=== PATIENT | female | born 1945 | race Caucasian/White ===

== ENCOUNTER 2019-09-22 09:59 | Inpatient (IN) ==
[2019-09-22] MEDS ORDERED: SODIUM CHLORIDE 0.9% 2,000 ML IV STA (10:51)
[2019-09-22 11:45] LABS: Basophils % 0.2 % (0.0-0.8); Eosinophils # 0.1 10*3/uL (0.0-0.87); Eosinophils % 0.6 % (0.00-10.9); Hemoglobin 12.9 GM/DL (12.0-16.0); Immature Granulocytes % 0.5 %; Immature Granulocytes Absolute 0.05 #; Lymphocytes # 0.7 10*3/uL (1.4-4.0); Lymphocytes % 7.4 % (21.3-54.2); Mean Corpuscular HGB Conc 32.3 GM/DL (32-36); Mean Corpuscular Volume 84.7 FL (87-102); Mean Platelet Volume 10.5 FL (9.6-12.0); Monocytes % 6.1 % (1.7-12.7); Neutrophils % 85.2 % (38.7-73.9); Platelet Count 293 T/CUMM (130-400); Red Blood Count 4.72 MC/CUMM (3.8-5.5); Red Cell Distribution Width 13.1 % (9.3-17.3); White Blood Count 9.6 T/CUMM (4-12)
[2019-09-22 11:57] LABS: INR 1.1; PT Patient Result 11.4 SECS (9.8-11.9)
[2019-09-22 12:28] LABS: Albumin 2.5 G/DL (3.4-5.0); Bilirubin,Total 0.5 MG/DL (0.2-1.0); Calcium 8.6 MG/DL (8.5-10.1); Ferritin 489.8 ng/ml (8-252); Osmolality,Calculated 279.5 MOS/KG (273-304); Total Protein 6.9 G/DL (6.4-8.3)
[2019-09-22] MEDS ORDERED: DEXTROSE 50% 25 GM/50 ML VIAL IV PRN (15:20)
[2019-09-22] MEDS ORDERED: GLUCAGON 1 MG VIAL IM PRN (15:20)
[2019-09-22 16:40] LABS: Apearance,Urine Slightly Hazy (Clear); Bacteria,Urine Occasional /HPF (Few); Bilirubin,Urine Negative (Negative); Blood, Urine Negative (Negative); Glucose,Urine (UA) Negative (Negative); Hyaline Casts,Urine 1 /LPF (0-3); Ketones,Urine 5 mg/dL (Negative); Mucus,Urine Occasional /LPF (Occasional); Nitrite,Urine Negative (Negative); Protein,Urine Negative; RBC,Urine 3 /HPF (0-4); Squamous Epithelial Cell,Urine Occasional /HPF (0-10); Urine Color Yellow (Yellow); Urine Specific Gravity 1.018 (1.001-1.035); Urine Urobilinogen < 2.0 EU/DL (0.2-1.0); WBC,Urine 3 /HPF (0-6)
[2019-09-22] MEDS: SODIUM CHLORIDE 0.9% 1,000 ML IV SCH (17:33)
[2019-09-22] MEDS: hydroCHLOROthiazide 25 MG TABLET PO SCH (20:39)
[2019-09-22] MEDS: LOSARTAN 50 MG TABLET PO SCH (20:39)
[2019-09-22] MEDS: POTASSIUM CHLORIDE 20 MEQ TABLET PO PRN (22:58)
[2019-09-23] MEDS: POTASSIUM CHLORIDE 20 MEQ TABLET PO PRN ×6 (01:46→22:12)
[2019-09-23] MEDS: SODIUM CHLORIDE 0.9% 1,000 ML IV SCH ×2 (03:51→15:11)
[2019-09-23 06:42] LABS: Basophils % 0.3 % (0.0-0.8); Eosinophils # 0.1 10*3/uL (0.0-0.87); Eosinophils % 1.9 % (0.00-10.9); Hematocrit 36.1 VOL% (35.7-47.0); Hemoglobin 11.9 GM/DL (12.0-16.0); Immature Granulocytes % 0.4 %; Immature Granulocytes Absolute 0.03 #; Lymphocytes # 0.7 10*3/uL (1.4-4.0); Lymphocytes % 9.3 % (21.3-54.2); Mean Corpuscular Volume 83.4 FL (87-102); Monocytes % 7.4 % (1.7-12.7); Neutrophils % 80.7 % (38.7-73.9); Platelet Count 261 T/CUMM (130-400); Red Blood Count 4.33 MC/CUMM (3.8-5.5); Red Cell Distribution Width 13.1 % (9.3-17.3)
[2019-09-23 06:58] LABS: Ferritin 409.2 ng/ml (8-252)
[2019-09-23 07:10] LABS: Calcium 8.4 MG/DL (8.5-10.1); Osmolality,Calculated 281.1 MOS/KG (273-304); Risk Ratio 2.58; Thyroid Stimulating Hormone 0.271 uIU/ml (0.358-3.74)
[2019-09-23] MEDS ORDERED: POTASSIUM CHLORIDE 20 MEQ TABLET PO SCH (09:00)
[2019-09-23] MEDS: ATORVASTATIN 40 MG TABLET PO SCH (09:05)
[2019-09-23] MEDS: ESTRADIOL 1 MG TABLET PO SCH (09:05)
[2019-09-23] MEDS: METOPROLOL SUCCINATE XL 50 MG TABLET PO SCH (09:05)
[2019-09-23] MEDS: PANTOPRAZOLE 40 MG TABLET PO SCH (09:05)
[2019-09-23] MEDS ORDERED: AZITHROMYCIN INJ 500 MG in SODIUM CHLORIDE 0.9% 250 ML IV SCH (11:00)
[2019-09-23] MEDS: cefTRIAXone 1,000 MG in SYRINGE 1 EACH IV SCH (11:48)
[2019-09-23] MEDS: LOSARTAN 50 MG TABLET PO SCH (21:01)
[2019-09-23] MEDS: hydroCHLOROthiazide 25 MG TABLET PO SCH (21:01)
[2019-09-23] MEDS ORDERED: MELATONIN 3 MG TABLET PO ONE (22:24)
[2019-09-24] MEDS: POTASSIUM CHLORIDE 20 MEQ TABLET PO PRN ×3 (00:41→15:13)
[2019-09-24] MEDS: SODIUM CHLORIDE 0.9% 1,000 ML IV SCH ×3 (00:49→20:26)
[2019-09-24 06:16] LABS: Basophils % 0.3 % (0.0-0.8); Eosinophils # 0.2 10*3/uL (0.0-0.87); Eosinophils % 2.5 % (0.00-10.9); Hemoglobin 10.9 GM/DL (12.0-16.0); Immature Granulocytes % 0.3 %; Immature Granulocytes Absolute 0.02 #; Lymphocytes % 13.1 % (21.3-54.2); Mean Corpuscular Volume 83.3 FL (87-102); Mean Platelet Volume 10.7 FL (9.6-12.0); Monocytes % 9.1 % (1.7-12.7); Neutrophils % 74.7 % (38.7-73.9); Platelet Count 276 T/CUMM (130-400); Red Blood Count 3.96 MC/CUMM (3.8-5.5); Red Cell Distribution Width 12.9 % (9.3-17.3); White Blood Count 7.3 T/CUMM (4-12)
[2019-09-24 06:25] LABS: Calcium 8.6 MG/DL (8.5-10.1); Osmolality,Calculated 274.5 MOS/KG (273-304)
[2019-09-24 06:32] LABS: Ferritin 375.8 ng/ml (8-252)
[2019-09-24] MEDS: ENOXAPARIN 40 MG/0.4 ML SYRINGE SUBCUT SCH (10:00)
[2019-09-24] MEDS: cefTRIAXone 1,000 MG in SYRINGE 1 EACH IV SCH (10:00)
[2019-09-24] MEDS: ESTRADIOL 1 MG TABLET PO SCH (10:01)
[2019-09-24] MEDS: ATORVASTATIN 40 MG TABLET PO SCH (10:01)
[2019-09-24] MEDS: METOPROLOL SUCCINATE XL 50 MG TABLET PO SCH (10:01)
[2019-09-24] MEDS: AZITHROMYCIN 250 MG TABLET PO SCH (10:01)
[2019-09-24] MEDS: PANTOPRAZOLE 40 MG TABLET PO SCH (10:01)
[2019-09-24] MEDS: LOSARTAN 50 MG TABLET PO SCH (20:25)
[2019-09-24] MEDS: hydroCHLOROthiazide 25 MG TABLET PO SCH (20:25)
[2019-09-24] MEDS ORDERED: MELATONIN 3 MG TABLET PO ONE (21:00)
[2019-09-25 04:39] LABS: Basophils % 0.4 % (0.0-0.8); Eosinophils # 0.2 10*3/uL (0.0-0.87); Eosinophils % 2.4 % (0.00-10.9); Hematocrit 32.6 VOL% (35.7-47.0); Hemoglobin 10.8 GM/DL (12.0-16.0); Immature Granulocytes % 0.4 %; Immature Granulocytes Absolute 0.03 #; Lymphocytes % 14.4 % (21.3-54.2); Mean Corpuscular HGB Conc 33.1 GM/DL (32-36); Mean Corpuscular Volume 82.1 FL (87-102); Mean Platelet Volume 10.4 FL (9.6-12.0); Monocytes % 8.9 % (1.7-12.7); Neutrophils % 73.5 % (38.7-73.9); Platelet Count 308 T/CUMM (130-400); Red Blood Count 3.97 MC/CUMM (3.8-5.5); Red Cell Distribution Width 12.8 % (9.3-17.3); White Blood Count 7.1 T/CUMM (4-12)
[2019-09-25 04:59] LABS: Calcium 8.7 MG/DL (8.5-10.1); Osmolality,Calculated 269.8 MOS/KG (273-304)
[2019-09-25 05:01] LABS: Ferritin 386.9 ng/ml (8-252)
[2019-09-25] MEDS: SODIUM CHLORIDE 0.9% 1,000 ML IV SCH ×2 (06:30→20:02)
[2019-09-25] MEDS: ESTRADIOL 1 MG TABLET PO SCH (08:57)
[2019-09-25] MEDS: AZITHROMYCIN 250 MG TABLET PO SCH (08:57)
[2019-09-25] MEDS: cefTRIAXone 1,000 MG in SYRINGE 1 EACH IV SCH (08:57)
[2019-09-25] MEDS: ENOXAPARIN 40 MG/0.4 ML SYRINGE SUBCUT SCH (08:57)
[2019-09-25] MEDS: METOPROLOL SUCCINATE XL 50 MG TABLET PO SCH (08:58)
[2019-09-25] MEDS: POTASSIUM CHLORIDE 20 MEQ TABLET PO PRN ×3 (08:58→18:09)
[2019-09-25] MEDS: PANTOPRAZOLE 40 MG TABLET PO SCH (08:58)
[2019-09-25] MEDS: ATORVASTATIN 40 MG TABLET PO SCH (08:58)
[2019-09-25] MEDS ORDERED: ONDANSETRON 4 MG/2 ML VIAL IV PRN (10:18)
[2019-09-25] MEDS: NYSTATIN 500,000 UNIT/5 ML UDCUP SWISH/SWAL SCH ×3 (11:27→20:01)
[2019-09-25] MEDS: hydroCHLOROthiazide 25 MG TABLET PO SCH (20:01)
[2019-09-25] MEDS: LOSARTAN 50 MG TABLET PO SCH (20:01)
[2019-09-25] MEDS: MELATONIN 3 MG TABLET PO PRN (20:56)
[2019-09-26 03:24] LABS: Calcium 8.8 MG/DL (8.5-10.1); Osmolality,Calculated 273.5 MOS/KG (273-304)
[2019-09-26] MEDS: ACETAMINOPHEN 325 MG TABLET PO PRN ×3 (03:36→20:19)
[2019-09-26] MEDS: SODIUM CHLORIDE 0.9% 1,000 ML IV SCH ×3 (04:44→20:38)
[2019-09-26] MEDS: NYSTATIN 500,000 UNIT/5 ML UDCUP SWISH/SWAL SCH ×4 (08:06→20:17)
[2019-09-26] MEDS: POTASSIUM CHLORIDE 20 MEQ TABLET PO PRN ×3 (08:07→22:20)
[2019-09-26] MEDS: ESTRADIOL 1 MG TABLET PO SCH (08:07)
[2019-09-26] MEDS: PANTOPRAZOLE 40 MG TABLET PO SCH (08:07)
[2019-09-26] MEDS: ATORVASTATIN 40 MG TABLET PO SCH (08:07)
[2019-09-26] MEDS: ENOXAPARIN 40 MG/0.4 ML SYRINGE SUBCUT SCH (08:08)
[2019-09-26] MEDS: METOPROLOL SUCCINATE XL 50 MG TABLET PO SCH (08:08)
[2019-09-26] MEDS ORDERED: POTASSIUM CHLORIDE 20 MEQ TABLET PO ONE (11:33)
[2019-09-26] MEDS: hydroCHLOROthiazide 25 MG TABLET PO SCH (20:18)
[2019-09-26] MEDS: DIPHENOXYLATE/ATROPINE 2.5-0.025 MG TABLET PO PRN (20:18)
[2019-09-26] MEDS: LOSARTAN 50 MG TABLET PO SCH (20:18)
[2019-09-26] MEDS: MELATONIN 3 MG TABLET PO PRN (20:18)
[2019-09-27] MEDS: POTASSIUM CHLORIDE 20 MEQ TABLET PO PRN (00:05)
[2019-09-27 05:40] LABS: Calcium 9.1 MG/DL (8.5-10.1); Osmolality,Calculated 276.3 MOS/KG (273-304)
[2019-09-27] MEDS: SODIUM CHLORIDE 0.9% 1,000 ML IV SCH ×2 (06:05→10:37)
[2019-09-27] MEDS: NYSTATIN 500,000 UNIT/5 ML UDCUP SWISH/SWAL SCH ×4 (08:09→20:16)
[2019-09-27] MEDS: ESTRADIOL 1 MG TABLET PO SCH (08:09)
[2019-09-27] MEDS: ATORVASTATIN 40 MG TABLET PO SCH (08:09)
[2019-09-27] MEDS: PANTOPRAZOLE 40 MG TABLET PO SCH (08:10)
[2019-09-27] MEDS: METOPROLOL SUCCINATE XL 50 MG TABLET PO SCH (08:10)
[2019-09-27] MEDS: ENOXAPARIN 40 MG/0.4 ML SYRINGE SUBCUT SCH (08:10)
[2019-09-27] MEDS ORDERED: FUROSEMIDE 40 MG/4 ML VIAL IV ONE (08:46)
[2019-09-27] MEDS: ACETAMINOPHEN 325 MG TABLET PO PRN ×2 (15:19→20:16)
[2019-09-27] MEDS: hydroCHLOROthiazide 25 MG TABLET PO SCH (20:15)
[2019-09-27] MEDS: DIPHENOXYLATE/ATROPINE 2.5-0.025 MG TABLET PO PRN (20:15)
[2019-09-27] MEDS: MELATONIN 3 MG TABLET PO PRN (20:16)
[2019-09-27] MEDS: LOSARTAN 50 MG TABLET PO SCH (20:16)
[2019-09-28 07:46] LABS: Osmolality,Calculated 274.5 MOS/KG (273-304)
[2019-09-28] MEDS: POTASSIUM CHLORIDE 20 MEQ TABLET PO PRN ×3 (08:39→16:16)
[2019-09-28] MEDS: ESTRADIOL 1 MG TABLET PO SCH (08:39)
[2019-09-28] MEDS: METOPROLOL SUCCINATE XL 50 MG TABLET PO SCH (08:39)
[2019-09-28] MEDS: ENOXAPARIN 40 MG/0.4 ML SYRINGE SUBCUT SCH (08:39)
[2019-09-28] MEDS: NYSTATIN 500,000 UNIT/5 ML UDCUP SWISH/SWAL SCH ×4 (08:39→20:20)
[2019-09-28] MEDS: PANTOPRAZOLE 40 MG TABLET PO SCH (08:39)
[2019-09-28] MEDS: ATORVASTATIN 40 MG TABLET PO SCH (08:39)
[2019-09-28 09:24] LABS: Basophils % 0.6 % (0.0-0.8); Eosinophils # 0.2 10*3/uL (0.0-0.87); Eosinophils % 2.9 % (0.00-10.9); Hematocrit 35.1 VOL% (35.7-47.0); Hemoglobin 11.3 GM/DL (12.0-16.0); Immature Granulocytes % 0.6 %; Immature Granulocytes Absolute 0.04 #; Lymphocytes # 1.6 10*3/uL (1.4-4.0); Lymphocytes % 22.9 % (21.3-54.2); Mean Corpuscular HGB Conc 32.2 GM/DL (32-36); Mean Platelet Volume 10.9 FL (9.6-12.0); Monocytes % 8.9 % (1.7-12.7); Neutrophils % 64.1 % (38.7-73.9); Platelet Count 403 T/CUMM (130-400); Red Blood Count 4.13 MC/CUMM (3.8-5.5); White Blood Count 6.9 T/CUMM (4-12)
[2019-09-28] MEDS ORDERED: FUROSEMIDE 20 MG/2 ML VIAL IV ONE (12:00)
[2019-09-28] MEDS ORDERED: MONTELUKAST 10 MG TABLET PO ONE (14:03)
[2019-09-28] MEDS ORDERED: MAGNESIUM SULF RIDER 4 GM in PREMIX 1 EACH IV PRN (16:26)
[2019-09-28] MEDS ORDERED: MAGNESIUM SULF RIDER 2 GM in PREMIX 1 EACH IV PRN (16:26)
[2019-09-28] MEDS: LOSARTAN 50 MG TABLET PO SCH (20:20)
[2019-09-28] MEDS ORDERED: hydroCHLOROthiazide 12.5 MG CAPSULE PO SCH (21:00)
[2019-09-28] MEDS: MELATONIN 3 MG TABLET PO PRN (22:28)
[2019-09-28] MEDS: ACETAMINOPHEN 325 MG TABLET PO PRN (22:28)
[2019-09-29 06:48] LABS: Calcium 9.4 MG/DL (8.5-10.1); Osmolality,Calculated 273.7 MOS/KG (273-304)
[2019-09-29] MEDS: MONTELUKAST 10 MG TABLET PO SCH (08:10)
[2019-09-29] MEDS: ESTRADIOL 1 MG TABLET PO SCH (08:10)
[2019-09-29] MEDS: ATORVASTATIN 40 MG TABLET PO SCH (08:10)
[2019-09-29] MEDS: ENOXAPARIN 40 MG/0.4 ML SYRINGE SUBCUT SCH (08:10)
[2019-09-29] MEDS: METOPROLOL SUCCINATE XL 50 MG TABLET PO SCH (08:10)
[2019-09-29] MEDS: PANTOPRAZOLE 40 MG TABLET PO SCH (08:10)
[2019-09-29] MEDS: NYSTATIN 500,000 UNIT/5 ML UDCUP SWISH/SWAL SCH ×4 (08:10→20:30)
[2019-09-29] MEDS: LOSARTAN 50 MG TABLET PO SCH (20:30)
[2019-09-29] MEDS: hydroCHLOROthiazide 12.5 MG CAPSULE PO SCH (20:30)
[2019-09-30] MEDS: PANTOPRAZOLE 40 MG TABLET PO SCH (08:41)
[2019-09-30] MEDS: ESTRADIOL 1 MG TABLET PO SCH (08:41)
[2019-09-30] MEDS: MONTELUKAST 10 MG TABLET PO SCH (08:41)
[2019-09-30] MEDS: ENOXAPARIN 40 MG/0.4 ML SYRINGE SUBCUT SCH (08:41)
[2019-09-30] MEDS: NYSTATIN 500,000 UNIT/5 ML UDCUP SWISH/SWAL SCH ×4 (08:41→20:22)
[2019-09-30] MEDS: ATORVASTATIN 40 MG TABLET PO SCH (08:41)
[2019-09-30] MEDS: METOPROLOL SUCCINATE XL 50 MG TABLET PO SCH ×2 (08:41→08:46)
[2019-09-30] MEDS: LOSARTAN 50 MG TABLET PO SCH (20:20)
[2019-09-30] MEDS: hydroCHLOROthiazide 12.5 MG CAPSULE PO SCH (20:21)
[2019-09-30] MEDS: MELATONIN 3 MG TABLET PO PRN (23:50)
[2019-10-01 06:16] LABS: Calcium 9.5 MG/DL (8.5-10.1); Osmolality,Calculated 274.7 MOS/KG (273-304)
[2019-10-01] MEDS: ESTRADIOL 1 MG TABLET PO SCH (09:28)
[2019-10-01] MEDS: ATORVASTATIN 40 MG TABLET PO SCH (09:28)
[2019-10-01] MEDS: ENOXAPARIN 40 MG/0.4 ML SYRINGE SUBCUT SCH (09:28)
[2019-10-01] MEDS: NYSTATIN 500,000 UNIT/5 ML UDCUP SWISH/SWAL SCH (09:28)
[2019-10-01] MEDS: METOPROLOL SUCCINATE XL 50 MG TABLET PO SCH (09:29)
[2019-10-01] MEDS: PANTOPRAZOLE 40 MG TABLET PO SCH (09:29)
[2019-10-01] MEDS: MONTELUKAST 10 MG TABLET PO SCH (09:29)
[2019-10-01 11:30] VITALS: BP 120/57
== END 2019-10-01 11:45 | DRG 177 ==
LOC: EDBD → EDUNIT# → N.ED 09:59 → N.EDINP 15:20 → SUATTDRO 15:20 → N.2E 17:25
PROVIDERS: ADMIT Internal Medicine; ATTEND Internal Medicine

== ENCOUNTER 2021-04-27 08:57 | Inpatient (IN) ==
[2021-04-27 09:30] LABS: Basophils # 0.1 10*3/uL (0.0-0.2); Basophils % 0.5 % (0.0-0.8); Eosinophils # 0.1 10*3/uL (0.0-0.87); Eosinophils % 0.5 % (0.00-10.9); Hematocrit 37.4 VOL% (35.7-47.0); Hemoglobin 12.1 GM/DL (12.0-16.0); Immature Granulocytes % 0.5 %; Immature Granulocytes Absolute 0.07 #; Lymphocytes # 1.2 10*3/uL (1.4-4.0); Lymphocytes % 9.1 % (21.3-54.2); Mean Corpuscular HGB Conc 32.4 GM/DL (32-36); Mean Platelet Volume 12.2 FL (9.6-12.0); Monocytes % 5.6 % (1.7-12.7); Neutrophils % 83.8 % (38.7-73.9); Platelet Count 167 T/CUMM (130-400); Red Cell Distribution Width 13.5 % (9.3-17.3)
[2021-04-27 09:50] LABS: Eosinophils 1 % (0-10); Hypochromia 1+; Lymphocytes 8 % (20-55); Microcytosis 1+; Segmented Neutrophils 88 % (50-85); Total Cells Counted 100
[2021-04-27 09:51] LABS: Ovalocytes Slight; Platelet Estimate Adequate
[2021-04-27 10:02] LABS: Albumin 3.2 G/DL (3.4-5.0); Calcium 8.9 MG/DL (8.5-10.1); Osmolality,Calculated 279.3 MOS/KG (273-304); Total Protein 7.2 G/DL (6.4-8.2)
[2021-04-27] MEDS ORDERED: cefTRIAXone 1,000 MG in SODIUM CHLORIDE 0.9% 100 ML IV STA (11:12)
[2021-04-27] MEDS ORDERED: FUROSEMIDE 40 MG/4 ML VIAL IV STA (11:12)
[2021-04-27] MEDS ORDERED: AZITHROMYCIN INJ 500 MG in SODIUM CHLORIDE 0.9% 250 ML IV STA (11:13)
[2021-04-27] MEDS ORDERED: ONDANSETRON 4 MG/2 ML VIAL IV PRN (11:40)
[2021-04-27] MEDS ORDERED: ACETAMINOPHEN 325 MG TABLET PO PRN (11:40)
[2021-04-27] MEDS ORDERED: hydrALAZINE 20 MG/1 ML VIAL IV PRN (11:40)
[2021-04-27] MEDS ORDERED: GLUCAGON 1 MG VIAL IM PRN (11:40)
[2021-04-27] MEDS ORDERED: DOCUSATE SODIUM 100 MG CAPSULE PO PRN (11:40)
[2021-04-27] MEDS ORDERED: DEXTROSE 10% 25 GM/250 ML BAG IV PRN (11:40)
[2021-04-27] MEDS ORDERED: MECLIZINE 25 MG TABLET PO PRN (11:43)
[2021-04-27] MEDS ORDERED: ALBUTEROL 2.5 MG/3 ML NEB RESP TX PRN (12:35)
[2021-04-27] MEDS ORDERED: ZALEPLON 5 MG CAPSULE PO PRN (12:53)
[2021-04-27 12:59] LABS: Thyroid Stimulating Hormone 0.752 uIU/ml (0.358-3.74)
[2021-04-27] MEDS ORDERED: FUROSEMIDE 40 MG/4 ML VIAL IV ONE ×2 (14:00→16:00)
[2021-04-27] MEDS: INSULIN LISPRO 100 UNIT/ML SUBCUT SCH ×2 (18:20→21:12)
[2021-04-27] MEDS ORDERED: hydroCHLOROthiazide 25 MG TABLET PO SCH (21:00)
[2021-04-27] MEDS: LOSARTAN 50 MG TABLET PO SCH (21:11)
[2021-04-27] MEDS: APIXABAN 5 MG TABLET PO SCH (21:11)
[2021-04-28 05:12] LABS: Basophils # 0.1 10*3/uL (0.0-0.2); Basophils % 0.5 % (0.0-0.8); Eosinophils # 0.2 10*3/uL (0.0-0.87); Eosinophils % 1.7 % (0.00-10.9); Hemoglobin 12.3 GM/DL (12.0-16.0); Immature Granulocytes % 0.4 %; Immature Granulocytes Absolute 0.04 #; Lymphocytes # 2.2 10*3/uL (1.4-4.0); Lymphocytes % 20.6 % (21.3-54.2); Mean Corpuscular HGB Conc 31.5 GM/DL (32-36); Mean Corpuscular Volume 86.9 FL (87-102); Mean Platelet Volume 12.2 FL (9.6-12.0); Monocytes % 8.1 % (1.7-12.7); Neutrophils % 68.7 % (38.7-73.9); Platelet Count 168 T/CUMM (130-400); Red Blood Count 4.49 MC/CUMM (3.8-5.5); Red Cell Distribution Width 13.4 % (9.3-17.3); White Blood Count 10.6 T/CUMM (4-12)
[2021-04-28 05:33] LABS: Calcium 9.2 MG/DL (8.5-10.1); Osmolality,Calculated 272.7 MOS/KG (273-304); Potassium 2.8 MMOL/L (3.5-5.1); Risk Ratio 1.86; VLDL Cholesterol 17.6 MG/DL
[2021-04-28] MEDS: ESTRADIOL 1 MG TABLET PO SCH (09:38)
[2021-04-28] MEDS: CHOLECALCIFEROL 1,000 UNIT TABLET PO SCH (09:39)
[2021-04-28] MEDS: FAMOTIDINE 20 MG TABLET PO SCH (09:39)
[2021-04-28] MEDS: ATORVASTATIN 40 MG TABLET PO SCH (09:39)
[2021-04-28] MEDS: MONTELUKAST 10 MG TABLET PO SCH (09:39)
[2021-04-28] MEDS: POTASSIUM CHLORIDE 20 MEQ TABLET PO SCH (09:39)
[2021-04-28] MEDS: METOPROLOL SUCCINATE XL 50 MG TABLET PO SCH (09:40)
[2021-04-28] MEDS: APIXABAN 5 MG TABLET PO SCH ×2 (09:40→20:50)
[2021-04-28] MEDS: PANTOPRAZOLE 40 MG TABLET PO SCH (09:40)
[2021-04-28] MEDS: INSULIN LISPRO 100 UNIT/ML SUBCUT SCH ×4 (09:43→20:51)
[2021-04-28] MEDS ORDERED: POTASSIUM CHLORIDE 20 MEQ TABLET PO ONE (12:00)
[2021-04-28] MEDS: LOSARTAN 50 MG TABLET PO SCH (20:50)
[2021-04-28] MEDS ORDERED: DILTIAZEM CD 120 MG CAPSULE PO SCH (21:00)
[2021-04-29 04:59] LABS: Basophils # 0.1 10*3/uL (0.0-0.2); Basophils % 0.5 % (0.0-0.8); Eosinophils # 0.2 10*3/uL (0.0-0.87); Eosinophils % 2.1 % (0.00-10.9); Hematocrit 43.6 VOL% (35.7-47.0); Hemoglobin 13.3 GM/DL (12.0-16.0); Immature Granulocytes % 0.4 %; Immature Granulocytes Absolute 0.04 #; Lymphocytes # 2.7 10*3/uL (1.4-4.0); Lymphocytes % 25.6 % (21.3-54.2); Mean Corpuscular HGB Conc 30.5 GM/DL (32-36); Mean Corpuscular Volume 90.8 FL (87-102); Mean Platelet Volume 12.3 FL (9.6-12.0); Monocytes % 7.8 % (1.7-12.7); Neutrophils % 63.6 % (38.7-73.9); Platelet Count 165 T/CUMM (130-400); Red Cell Distribution Width 13.3 % (9.3-17.3); White Blood Count 10.4 T/CUMM (4-12)
[2021-04-29 05:17] LABS: Calcium 8.9 MG/DL (8.5-10.1); Osmolality,Calculated 278.4 MOS/KG (273-304); Potassium 3.9 MMOL/L (3.5-5.1)
[2021-04-29] MEDS: INSULIN LISPRO 100 UNIT/ML SUBCUT SCH ×2 (08:43→11:36)
[2021-04-29] MEDS ORDERED: ASCORBIC ACID 500 MG TABLET PO SCH (09:00)
[2021-04-29] MEDS: FAMOTIDINE 20 MG TABLET PO SCH (09:49)
[2021-04-29] MEDS: POTASSIUM CHLORIDE 20 MEQ TABLET PO SCH (09:49)
[2021-04-29] MEDS: ESTRADIOL 1 MG TABLET PO SCH (09:49)
[2021-04-29] MEDS: APIXABAN 5 MG TABLET PO SCH (09:49)
[2021-04-29] MEDS: ATORVASTATIN 40 MG TABLET PO SCH (09:49)
[2021-04-29] MEDS: METOPROLOL SUCCINATE XL 50 MG TABLET PO SCH (09:50)
[2021-04-29] MEDS: CHOLECALCIFEROL 1,000 UNIT TABLET PO SCH (09:50)
[2021-04-29] MEDS: PANTOPRAZOLE 40 MG TABLET PO SCH (09:50)
[2021-04-29] MEDS: MONTELUKAST 10 MG TABLET PO SCH (09:50)
[2021-04-29 12:15] VITALS: BP 121/97
[2021-04-30] MEDS ORDERED: FUROSEMIDE 20 MG TABLET PO SCH (09:00)
== END 2021-04-29 13:07 | disposition home or self-care (01) | DRG 291 ==
LOC: EDBD → EDUNIT# → N.ED 08:57 → SUATTDRO 11:40 → N.TELEN 11:40
PROVIDERS: ADMIT Internal Medicine; ATTEND Internal Medicine